=== PATIENT | male | born 1970 | race American Indian/Alaskan Native ===

== ENCOUNTER → 2016-11-21 | Emergency (ER) | payer OTHER ==
[~2016-11-21] MED LIST: KETOROLAC TROMETHAMINE 60 MG/2 ML VIAL IM ONE; KETOROLAC TROMETHAMINE 60 MG/2 ML VIAL ONE
[2016-11-21 11:41] VITALS: BMI 27.3
--- NOTE | 2016-11-21 14:49 | PDOC ---
History of Present Illness - General History Source: Patient Exam Limitations: No Limitations - History of Present Illness Initial Comments: 11/21/16 14:49 The patient is a 45-year-old man with a significant past surgical history of hernia repair who presents to the emergency department for constant non- radiating left back pain. The patient reports lifting an approximately 10 lb box that might've injured the left side of his back. Patient is unable to describe the nature of his pain but notes his pain is exacerbating to a 9/10 in severity with musculoskelatal manuvers. He took Aleve at home at approximately 09:00 AM that did not provide any relief. Patient denies any numbness, tingling or weakness to his extremities. No neck pain. No unsteady gait. No bowel/ bladder incontinence. No chest pain, cough, shortness of breath, lightheadedness , dizziness, nausea, vomiting, diarrhea. No urinary complaints. He denies chest pain, cough, shortness of breath, headache He denies nausea, vomiting, diarrhea He denies changes in bowel habits, dysuria, hematuria, urinary frequency/urgency , testicular pain or penile discharge. Allergies: No Known Drug Allergies Past Surgical History: Hernia Repair. Social History: Current everyday cigarette smoker. No EtOH and recreational drug use. Primary Care Physician: Dr. Bobby Wyman <Carmen Prado - Last Filed: 11/21/16 16:16> <Светлана Salinas - Last Filed: 11/21/16 16:38> <Julita Ortiz - Last Filed: 11/21/16 17:14> - General Chief Complaint: Pain, Acute Stated Complaint: LT SIDE/BACK PAIN (KIDNEY) Time Seen by Provider: 11/21/16 14:49 Past History <Carmen Prado - Last Filed: 11/21/16 16:16> - Surgical History Abdominal Surgery: (HERNIA REPAIR) - Immunization History Td Vaccination: Yes Immunization Up to Date: Yes - Psycho/Social/Smoking Cessation Hx Anxiety: No Suicidal Ideation: No Smoking Status: Yes Smoking History: Current every day smoker Years of Tobacco Use: 14 Have you smoked in the past 12 months: Yes Number of Cigarettes Smoked Daily: 10 If you are a former smoker, when did you quit?: 3 DAYS AGO Cigars Per Day: 0 Information on smoking cessation initiated: No 'Breaking Loose' booklet given: 12/08/13 Hx Alcohol Use: No Drug/Substance Use Hx: No Substance Use Type: None <Светлана Salinas - Last Filed: 11/21/16 16:38> <AngelJulitageorge Patel - Last Filed: 11/21/16 17:14> - Past Medical History Allergies/Adverse Reactions: Allergies Allergy/AdvReac Type Severity Reaction Status Date / Time No Known Allergies Allergy Verified 11/21/16 11:41 Home Medications: Ambulatory Orders NK [No Known Home Medication] 11/21/16 Review of Systems - Review of Systems Able to Perform ROS?: Yes Comments:: 11/21/16 14:49 GENERAL/CONSTITUTIONAL: No fever or chills. No weakness. HEAD, EYES, EARS, NOSE AND THROAT: No change in vision. No ear pain or discharge. No sore throat. CARDIOVASCULAR: No chest pain or shortness of breath. RESPIRATORY: No cough, wheezing, or hemoptysis. GASTROINTESTINAL: No nausea, vomiting, diarrhea or constipation. GENITOURINARY: No dysuria, frequency, or change in urination. MUSCULOSKELETAL: No joint or muscle swelling or pain. No neck or back pain. SKIN: No rash NEUROLOGIC: No headache, vertigo, loss of consciousness, or change in strength/ sensation. ENDOCRINE: No increased thirst. No abnormal weight change. HEMATOLOGIC/LYMPHATIC: No anemia, easy bleeding, or history of blood clots. ALLERGIC/IMMUNOLOGIC: No hives or skin allergy. <Carmen Prado - Last Filed: 11/21/16 16:16> *Physical Exam - Vital Signs Last Vital Signs Temp Pulse Resp BP Pulse Ox 98 F 77 18 116/75 99 11/21/16 11:38 11/21/16 11:38 11/21/16 11:38 11/21/16 11:38 11/21/16 11:38 - Physical Exam Comments: 11/21/16 14:49 GENERAL: Awake, alert, and fully oriented, in no acute distress HEAD: No signs of trauma EYES: PERRLA, EOMI, sclera anicteric, conjunctiva clear ENT: Auricles normal inspection, hearing grossly normal, nares patent, oropharynx clear without exudates. Moist mucosa NECK: Normal ROM, supple, no lymphadenopathy, JVD, or masses LUNGS: Breath sounds equal, clear to auscultation bilaterally. No wheezes, and no crackles HEART: Regular rate and rhythm, normal S1 and S2, no murmurs, rubs or gallops ABDOMEN: Soft, nontender, normoactive bowel sounds. No guarding, no rebound. No masses EXTREMITIES: Normal range of motion, no edema. No clubbing or cyanosis. No cords, erythema, or tenderness BACK: +Right paraspinal tenderness. NEUROLOGICAL: Cranial nerves II through XII grossly intact. Normal speech. <Carmen Prado - Last Filed: 11/21/16 16:16> - Vital Signs Last Vital Signs Temp Pulse Resp BP Pulse Ox 98 F 77 18 116/75 99 11/21/16 11:38 11/21/16 11:38 11/21/16 11:38 11/21/16 11:38 11/21/16 11:38 <Светлана Salinas - Last Filed: 11/21/16 16:38> - Vital Signs Last Vital Signs Temp Pulse Resp BP Pulse Ox 98.2 F 76 17 127/73 100 11/21/16 16:20 11/21/16 16:20 11/21/16 16:20 11/21/16 16:20 11/21/16 16:20 <Julita Ortiz - Last Filed: 11/21/16 17:14> ED Treatment Course - ADDITIONAL ORDERS Additional order review: Laboratory Results 11/21/16 15:00 Urine Color Yellow Urine Appearance Clear Urine pH 5.0 Urine Protein Negative Urine Glucose (UA) Negative Urine Ketones Trace H Urine Blood Negative Urine Nitrite Negative Urine Bilirubin Negative Urine Urobilinogen Negative Ur Leukocyte Esterase Trace H Urine RBC 6 Urine WBC 3 Ur Epithelial Cells Rare Urine Mucus Many - Medications Given in the ED: ED Medications Discontinued Medications Generic Name Dose Route Start Last Admin Trade Name Freq PRN Reason Stop Dose Admin Ketorolac Tromethamine 60 mg 11/21/16 15:29 11/21/16 15:45 Toradol Injection - IM 11/21/16 15:30 60 mg ONCE ONE Administration <Carmen Prado - Last Filed: 11/21/16 16:16> - ADDITIONAL ORDERS Additional order review: Laboratory Results 11/21/16 15:00 Urine Color Yellow Urine Appearance Clear Urine pH 5.0 Urine Protein Negative Urine Glucose (UA) Negative Urine Ketones Trace H Urine Blood Negative Urine Nitrite Negative Urine Bilirubin Negative Urine Urobilinogen Negative Ur Leukocyte Esterase Trace H Urine RBC 6 Urine WBC 3 Ur Epithelial Cells Rare Urine Mucus Many - Medications Given in the ED: ED Medications Discontinued Medications Generic Name Dose Route Start Last Admin Trade Name [place] PRN Reason Stop Dose Admin Ketorolac Tromethamine 60 mg 11/21/16 15:29 11/21/16 15:45 Toradol Injection - IM 11/21/16 15:30 60 mg ONCE ONE Administration <Julita Ortiz - Last Filed: 11/21/16 17:14> Medical Decision Making - Medical Decision Making 11/21/16 16:38 Pt presents to the ED complaining of the acute onset of left sided back pain that began while lifting a heavy box. No urinary or neurologic complaints. No trauma or fever. Pain is made worse with twisting movements of the torso. Pain seems most consistent with muscular pain, but UA shows microscopic hematuria. Will check CT abdomen pelvis to rule out renal stone. <Светлана Salinas - Last Filed: 11/21/16 16:38> *DC/Admit/Observation/Transfer - Attestations Scribe Attestion: 11/21/16 15:57 Documentation prepared by Carmen Prado, acting as medical office supervisor for Светлана Salinas MD, /DO. <Carmen Prado - Last Filed: 11/21/16 16:16> <Светлана Salinas - Last Filed: 11/21/16 16:38> <Julita Ortiz - Last Filed: 11/21/16 17:14> Diagnosis at time of Disposition: Back pain Qualifiers: Back pain location: low back pain Chronicity: acute Back pain laterality: right Sciatica presence: without sciatica Qualified Code(s): M54.5 - Low back pain - Discharge Dispostion Disposition: HOME Condition at time of disposition: Stable - Referrals Referrals: Bobby Wyman MD [Primary Care Provider] - - Patient Instructions Printed Discharge Instructions: DI for Low Back Pain Additional Instructions: please followup with your physician if your symptoms persist
[2016-11-21 15:18] LABS: URINE APPEARANCE CLEAR; URINE BILIRUBIN NEGATIVE (NEGATIVE); URINE BLOOD NEGATIVE (NEGATIVE); URINE COLOR YELLOW; URINE GLUCOSE (UA) NEGATIVE (NEGATIVE); URINE KETONE TRACE (NEGATIVE); URINE NITRITE NEGATIVE (NEGATIVE); URINE PROTEIN NEGATIVE (NEGATIVE); URINE UROBILINOGEN NEGATIVE E.U./dl (0.2-1.0)
[2016-11-21 15:19] LABS: URINE LEUK ESTERASE TRACE (NEGATIVE)
[2016-11-21 15:46] LABS: URINE MUCUS MANY; URINE RBC 6 /hpf (0-3); URINE WBC 3 /hpf (3-5)
[2016-11-21 16:21] VITALS: BP 127/73; PULSE 76; TEMP 98.2
== END | disposition home or self-care (01) ==
LOC: JER 11:35
PROC: 3E0233Z Introduction of Anti-inflammatory into Muscle, Percutaneous Approach (ICD-10-PCS; principal; 2016-11-21)
DX: M54.5 Low back pain (principal); X50.0XXA Overexertion from strenuous movement or load, initial encounter; Y93.89 Activity, other specified; Y92.89 Other specified places as the place of occurrence of the external cause
CPT/HCPCS: 74176-TC; 81003; 81015; 96372; 99282-25

== ENCOUNTER 2017-01-06 12:07 | Emergency (ER) | payer OTHER ==
[2017-01-06 12:24] VITALS: BP 125/79; PULSE 70; TEMP 98; BMI 26.6
--- NOTE | 2017-01-06 12:33 | PDOC ---
History of Present Illness - General Chief Complaint: Chest Pain Stated Complaint: CHEST,ABD PAIN Time Seen by Provider: 01/06/17 12:33 - History of Present Illness Initial Comments: 01/06/17 14:01 Chief complaint: Chest and abdominal pain History of present illness: Patient states that he quit smoking one week ago after smoking cigarettes 1-2 packs per day for 20 years. A few days thereafter he began to feel "heartburn" in his epigastrium radiating to his anterior chest. This is accompanied by intermittent nausea, anorexia, anxiety, sleeplessness, and tingling in his hands and feet. Review of systems: Denies diaphoresis, lightheadedness, shortness of breath, visual or focal neurologic symptoms, unsteadiness of gait. Remainder systems reviewed and found to be negative Past medical history: Patient is a healthy male, no significant past medical or surgical problems, no home medications. Social history: Quit smoking at the urging of his small daughter. Denies alcohol or other drugs. Fully active and without disability Family history: Reviewed and noncontributory including early coronary artery disease, metabolic disease including diabetes, and cancer Physical exam: Alert and oriented 3, well-developed well-nourished, no acute distress, cheerful and cooperative Afebrile, vital signs normal PERRLA, fundi benign, ENT clear Neck supple without bruit mass or nodes Chest clear with full breath sounds throughout CV S1 and S2 normal without murmur rub or gallop pulses full and symmetric no JVD or edema. No rib cage or chest wall deformity or point tenderness Abdomen soft nontender without mass or organomegaly. Bowel sounds normal. Neurological C2 to 12 intact. No focal sensory or motor deficits. Gait stable and unimpaired Extremities no CCE Skin clear, no rash, adequate turgor and wet mucous membranes Impression: Most likely withdrawal from nicotine with multiple somatic symptoms. No suggestion of neurologic or cardiac disease on exam or from the history Plan: EKG and enzymes, CBC and chemistries, Protonix and Zofran, further medical evaluation depending on results Past History - Past Medical History Allergies/Adverse Reactions: Allergies Allergy/AdvReac Type Severity Reaction Status Date / Time No Known Allergies Allergy Verified 01/06/17 12:09 Home Medications: Ambulatory Orders Hydroxyzine Pamoate [Vistaril -] 25 mg PO TID #20 capsule 01/06/17 Pantoprazole Sodium [Protonix -] 40 mg PO DAILY #10 tablet.ec 01/06/17 Other medical history: LOWER BACK AND NECK PAIN - Surgical History Abdominal Surgery: (HERNIA REPAIR) - Immunization History Td Vaccination: Yes Immunization Up to Date: Yes - Psycho/Social/Smoking Cessation Hx Anxiety: No Suicidal Ideation: No Smoking Status: Yes Smoking History: Former smoker Years of Tobacco Use: 14 Have you smoked in the past 12 months: Yes Number of Cigarettes Smoked Daily: 10 If you are a former smoker, when did you quit?: Dec Cigars Per Day: 0 Information on smoking cessation initiated: Yes 'Breaking Loose' booklet given: 01/06/17 Hx Alcohol Use: No Drug/Substance Use Hx: No Substance Use Type: None *Physical Exam - Vital Signs Last Vital Signs Temp Pulse Resp BP Pulse Ox 98 F 70 20 125/79 100 01/06/17 12:08 01/06/17 12:08 01/06/17 12:08 01/06/17 12:08 01/06/17 12:08 ED Treatment Course - LABORATORY CBC & Chemistry Diagram: 01/06/17 13:00 01/06/17 13:00 - ADDITIONAL ORDERS Additional order review: Laboratory Results 01/06/17 13:00 Sodium 136 Potassium 3.5 Chloride 103 Carbon Dioxide 26 Anion Gap 7 L BUN 13 Creatinine 0.8 Creat Clearance w eGFR > 60 Random Glucose 93 Calcium 8.9 Total Bilirubin 0.3 AST 26 ALT 23 Alkaline Phosphatase 41 Creatine Kinase 163 Creatine Kinase Index 1.7 CK-MB (CK-2) 2.9 Troponin I < 0.03 L Total Protein 6.6 Albumin 4.1 01/06/17 13:00 RBC 4.46 MCV 85.7 MCHC 36.2 H RDW 11.7 L MPV 11.4 H Neutrophils % 50.8 Lymphocytes % 39.1 Monocytes % 6.8 Eosinophils % 2.3 Basophils % 1.0 - Medications Given in the ED: ED Medications Discontinued Medications Generic Name Dose Route Start Last Admin Trade Name Freq PRN Reason Stop Dose Admin Pantoprazole Sodium 40 mg/ 100 mls @ 200 mls/hr 01/06/17 12:57 01/06/17 13:03 Sodium Chloride IVPB 01/06/17 13:26 200 mls/hr ONCE ONE Administration Ondansetron HCl 4 mg 01/06/17 13:00 01/06/17 13:03 Zofran Injection IVPB 01/06/17 13:01 4 mg ONCE ONE Administration Medical Decision Making - Medical Decision Making 01/06/17 12:46 EKG shows normal sinus rhythm rate 61/m. Normal axes and intervals. There is an inverted T-wave in lead 3 and the suggestion of flattening of the ST segment in aVF. These are the only abnormalities. Old EKGs were obtained from 2013 and 2015. Similar changes were present, there being no interval change. 01/06/17 12:50 01/06/17 13:47 Laboratories reviewed: No significant abnormalities in the CBC and chemistries. Troponin is negative. Patient symptoms are most likely due to abrupt cessation of smoking after smoking 1-2 packs per day for 20 years. He is already 1 week without cigarettes and is determined to continue his abstinence. Short course of Protonix and anxiolytic until body acclimated to the withdrawal of nicotine. Instructed to follow-up with his primary physician or return to the ER if his symptoms are worse. Fully ambulatory and in no significant pain or other distress upon discharge with friend to follow-up as directed 01/06/17 14:06 *DC/Admit/Observation/Transfer Diagnosis at time of Disposition: Nicotine withdrawal - Discharge Dispostion Disposition: HOME Condition at time of disposition: Improved Admit: No - Prescriptions Prescriptions: Pantoprazole Sodium [Protonix -] 40 mg PO DAILY #10 tablet.ec Hydroxyzine Pamoate [Vistaril -] 25 mg PO TID #20 capsule - Patient Instructions Printed Discharge Instructions: Smoking Cessation, Smoking Cessation Associated with Decreases Risk of Complications After Juni - Post Discharge Activity Work/School Note: Back to Work
[2017-01-06] MEDS ORDERED: PANTOPRAZOLE SODIUM 40 MG in SODIUM CHLORIDE 100 ML IVPB ONE (12:57)
[2017-01-06] MEDS ORDERED: ONDANSETRON 4 MG/2 ML VIAL IVPB ONE (13:00)
[2017-01-06] MEDS ORDERED: PANTOPRAZOLE SODIUM 40 MG VIAL ONE (13:01)
[2017-01-06] MEDS ORDERED: ONDANSETRON 4 MG/2 ML VIAL ONE (13:04)
[2017-01-06 13:16] LABS: EOSINOPHIL 2.3 % (0-4.5); MCH 31.1 pg (25.7-33.7); MCHC 36.2 g/dl (32.0-35.9); MEAN CELL VOLUME 85.7 fl (80-96); MEAN PLT VOLUME 11.4 fl (7.5-11.1); NEUTROPHILS 50.8 % (42.8-82.8); PLATELET COUNT 122 K/MM3 (134-434); RDW 11.7 % (11.9-15.9); WHITE BLOOD COUNT 8.1 K/mm3 (4.0-10.8)
--- NOTE | 2017-01-06 13:20 | EKG ---
Test Reason : Blood Pressure : / mmHG Vent. Rate : 061 BPM Atrial Rate : 061 BPM P-R Int : 170 ms QRS Dur : 102 ms QT Int : 410 ms P-R-T Axes : 046 077 011 degrees QTc Int : 412 ms SINUS RHYTHM WHEN COMPARED WITH ECG OF 23-DEC-2015 09:05, NO SIGNIFICANT CHANGE WAS FOUND Confirmed by GABE VASQUEZ MD ([id number]) on 01/06/2017 1:20:05 PM Referred By: EVON Confirmed By:GABE VASQUEZ MD
[2017-01-06 13:25] LABS: ALBUMIN 4.1 g/dl (3.5-5.0); ALK PHOS 41 U/L (32-92); ANION GAP 7 (8-16); BILIRUBIN,TOTAL 0.3 mg/dl (0.2-1.0); CALCIUM 8.9 mg/dl (8.4-10.2); CO2 26 mmol/L (22-28); CPK 163 IU/L (39-308); CREATININE 0.8 mg/dl (0.6-1.3); GLUCOSE,RANDOM 93 mg/dl (74-106); SGOT/AST 26 U/L (10-42); SGPT/ALT 23 U/L (10-40); TOT PROT 6.6 g/dl (6.4-8.3)
[2017-01-06 13:37] LABS: TROPONIN I (DFP) < 0.03 ng/ml (0.03-0.50)
== END 2017-01-06 14:07 | disposition home or self-care (01) ==
LOC: FER 12:07
PROC: 3E023GC Introduction of Other Therapeutic Substance into Muscle, Percutaneous Approach (ICD-10-PCS; principal; 2017-01-06)
DX: F17.203 Nicotine dependence unspecified, with withdrawal (principal)
CPT/HCPCS: 36415; 80053; 82553; 84484; 85025; 93005; 96365; 96375; 99284-25

== ENCOUNTER 2017-07-26 23:00 | Emergency (ER) | payer OTHER ==
[2017-07-26 23:12] VITALS: BP 117/82; PULSE 71; TEMP 97.9; BMI 26.9
[2017-07-27 01:11] LABS: BASO % 0.5 % (0-2.0); EOS % 2.8 % (0-4.5); HEMATOCRIT 40.1 % (35.4-49); HEMOGLOBIN 13.7 GM/dL (11.7-16.9); LYMPH % 48.9 % (8-40); MCH 30.9 pg (25.7-33.7); MEAN CELL VOLUME 90.8 fl (80-96); MONO % 7.9 % (3.8-10.2); NEUT % 39.9 % (42.8-82.8); PLATELET COUNT 128 K/MM3 (134-434); RBC 4.42 M/mm3 (4.00-5.60); RDW 12.9 % (11.9-15.9)
--- NOTE | 2017-07-27 01:22 | PDOC ---
History of Present Illness - General History Source: Patient, Family Exam Limitations: No Limitations - History of Present Illness Initial Comments: 07/27/17 01:26 The patient is a 46 year old male presenting with his family, with no significant past medical history, who presents to the emergency department with chest pain onset today and left arm numbness/tingling for the past 3 days. He describes his chest pain as sharp in nature and ranging from mild to moderate, with radiation to the left upper back and his left upper extremity. He reports taking Ibuprofen 800 mg and percocet, which has helped alleviate the pain. He notes that he has been worked up for chest pain in the past and had a stress test last year that was normal. He reports that he did receive the flu shot last week on his left arm. The patient denies shortness of breath, headache and dizziness. Denies fever, chills, nausea, vomit, diarrhea and constipation. Denies dysuria, frequency, urgency and hematuria. Allergies: None Past surgical history: Hernia Repair Social history: Half a pack daily. No alcohol or drug use reported <Calvin Hernandez - Last Filed: 07/27/17 01:26> - General History Source: Patient Exam Limitations: No Limitations <Lily Peralta - Last Filed: 07/27/17 02:08> - General Chief Complaint: Chest Pain Stated Complaint: CHEST PAIN Time Seen by Provider: 07/27/17 00:08 Past History <Calvin Hernandez - Last Filed: 07/27/17 01:26> - Past Medical History COPD: No Other medical history: denies - Surgical History Abdominal Surgery: (HERNIA REPAIR) - Immunization History Td Vaccination: Yes Immunization Up to Date: Yes - Suicide/Smoking/Psychosocial Hx Smoking Status: Yes Smoking History: Current every day smoker Years of Tobacco Use: 14 Have you smoked in the past 12 months: Yes Number of Cigarettes Smoked Daily: 10 If you are a former smoker, when did you quit?: Dec Cigars Per Day: 0 Information on smoking cessation initiated: No 'Breaking Loose' booklet given: 01/06/17 Hx Alcohol Use: No Drug/Substance Use Hx: No Substance Use Type: None <Lily Peralta - Last Filed: 07/27/17 02:08> - Past Medical History Allergies/Adverse Reactions: Allergies Allergy/AdvReac Type Severity Reaction Status Date / Time No Known Allergies Allergy Verified 01/06/17 12:09 Home Medications: Ambulatory Orders Pantoprazole Sodium [Protonix -] 40 mg PO DAILY #10 tablet.ec 01/06/17 hydrOXYzine PAMOATE [Vistaril -] 25 mg PO TID #20 capsule 01/06/17 Review of Systems - Review of Systems Able to Perform ROS?: Yes Comments:: 07/27/17 01:27 GENERAL/CONSTITUTIONAL: No fever or chills. No weakness. HEAD, EYES, EARS, NOSE AND THROAT: No change in vision. No ear pain or discharge. No sore throat. CARDIOVASCULAR: (+) Chest pain. No shortness of breath RESPIRATORY: No cough, wheezing, or hemoptysis. GASTROINTESTINAL: No nausea, vomiting, diarrhea or constipation. GENITOURINARY: No dysuria, frequency, or change in urination. MUSCULOSKELETAL: No joint or muscle swelling or pain. No neck or back pain. SKIN: No rash NEUROLOGIC: (+) Left upper extremity numbness/tingling. No headache, vertigo, loss of consciousness. ENDOCRINE: No increased thirst. No abnormal weight change HEMATOLOGIC/LYMPHATIC: No anemia, easy bleeding, or history of blood clots. ALLERGIC/IMMUNOLOGIC: No hives or skin allergy. <Calvin Hernandez - Last Filed: 07/27/17 01:26> *Physical Exam - Vital Signs Last Vital Signs Temp Pulse Resp BP Pulse Ox 97.9 F 71 19 117/82 98 07/26/17 23:07 07/26/17 23:07 07/26/17 23:07 07/26/17 23:07 07/26/17 23:07 - Physical Exam Comments: 07/27/17 01:27 GENERAL: Awake, alert, and fully oriented, in no acute distress HEAD: No signs of trauma, normocephalic, atraumatic EYES: PERRLA, EOMI, sclera anicteric, conjunctiva clear ENT: Auricles normal inspection, hearing grossly normal, nares patent, oropharynx clear without exudates. Moist mucosa NECK: Normal ROM, supple, no lymphadenopathy, JVD, or masses LUNGS: No distress, speaks full sentences, clear to auscultation bilaterally HEART: Regular rate and rhythm, normal S1 and S2, no murmurs, rubs or gallops, peripheral pulses normal and equal bilaterally. ABDOMEN: Soft, nontender, normoactive bowel sounds. No guarding, no rebound. No masses EXTREMITIES : Normal inspection, Normal range of motion, no edema. No clubbing or cyanosis. NEUROLOGICAL: Cranial nerves II through XII grossly intact. Normal speech, normal gait, no focal sensorimotor deficits SKIN: Warm, Dry, normal turgor, no rashes or lesions noted <Calvin Hernandez - Last Filed: 07/27/17 01:26> - Vital Signs Last Vital Signs Temp Pulse Resp BP Pulse Ox 97.9 F 71 19 117/82 98 07/26/17 23:07 07/26/17 23:07 07/26/17 23:07 07/26/17 23:07 07/26/17 23:07 <Lily Peralta - Last Filed: 07/27/17 02:08> Heart Score/ECG Review - History History: Slightly suspicious - Electrocardiogram EKG: Normal - Age Age: 45-65 - Risk Factors Risk Factors Heart Score: Yes Smoking History, Yes Positive family hx of cardiac disease Based on the list above the patient has:: 1-2 risk factors - Troponin Troponin: </= normal limit - Score Heart Score - Total: 2 <Lily Peralta - Last Filed: 07/27/17 02:08> ED Treatment Course - LABORATORY CBC & Chemistry Diagram: 07/27/17 00:49 07/27/17 00:49 - ADDITIONAL ORDERS Additional order review: 07/27/17 00:49 RBC 4.42 MCV 90.8 MCHC 34.0 RDW 12.9 MPV 12.0 H D Neutrophils % 39.9 L D Lymphocytes % 48.9 H D Monocytes % 7.9 Eosinophils % 2.8 Basophils % 0.5 <Calvin Hernandez - Last Filed: 07/27/17 01:26> - LABORATORY CBC & Chemistry Diagram: 07/27/17 00:49 07/27/17 00:49 - RADIOLOGY Radiology Studies Ordered: Category Date Time Status CHEST PA & LAT [RAD] Stat Radiology 07/27/17 00:10 Taken <Lily Peralta - Last Filed: 07/27/17 02:08> Medical Decision Making - Medical Decision Making 07/27/17 01:11 Mr Hendricks presents to the ER today due to a complaint of left arm pain and chest pain The patient states that he has no history of HTN, DM, HLD, CAD He is s/p stress test 1 year ago as an outpatient Pt is s/p influenza vaccination 5 days ago He noted three days ago that he has had left arm cramping/pain Pt states the pain was constant and progressed down the left arm No direct trauma Pt was playing cards this evening his arm pain became severe It was so severe, he could not move his arm higher than his shoulder His pain radiated to his anterior chest No nausea, no diaphoresis No radiation to the back Prior to arrival in the ER, the patient took Motrin 800mg followed by a percocet This has completely resolved his pain On examination: Pt has muscular pain on palpation of the left biceps muscle No neck pain No shoulder pain No chest wall pain RRR CTA b/l Pt and family are concerned about ACS Will do labs, ekg It appears that he is low risk - Heart score = 2 (tobacco use + family history) Based on this, will do troponin Now If undetectable, will repeat troponin in 2 hours 07/27/17 01:23 EKG: SR, rate of 71 bpm, [place] nml, intervals nml, no st elevations or depressions, t wave inversion III 07/27/17 01:33 Laboratory Tests 07/27/17 00:49 WBC 8.0 Hgb 13.7 Hct 40.1 Plt Count 128 L 07/27/17 01:47 Laboratory Tests 07/27/17 00:49 Sodium 139 Potassium 3.6 Chloride 103 Carbon Dioxide 24 BUN 20 H D Creatinine 0.9 Random Glucose 88 Creatine Kinase 140 Troponin I < 0.02 07/27/17 02:03 Pt remains chest pain free CXR: read preliminarily by me is negative Pt does not wish to stay in the hospital He states he has to go to work at 6 am I have explained that it would be best to stay for a repeat troponin at 3 am Pt is unable to do this PERC negative Will discharge to home Pt will need to follow up with his primary care physician Return to the ER for any other concerns or complaints clinical impression: musculoskeletal pain, initial presentation <Lily Peralta - Last Filed: 07/27/17 02:08> *DC/Admit/Observation/Transfer - Attestations Scribe Attestion: 07/27/17 01:28 Documentation prepared by Calvin Hernandez, acting as medical radiation tech for Lily Peralta MD <Calvin Hernandez - Last Filed: 07/27/17 01:26> - Discharge Dispostion Admit: No <Lily Peralta - Last Filed: 07/27/17 02:08> Diagnosis at time of Disposition: Musculoskeletal arm pain Qualifiers: Laterality: left Qualified Code(s): M79.602 - Pain in left arm - Discharge Dispostion Disposition: HOME Condition at time of disposition: Stable - Referrals Referrals: Bert Wyman [Primary Care Provider] - Dallas Zhong MD [Staff Physician] - - Patient Instructions Printed Discharge Instructions: DI for Atypical Chest Pain, DI for Musculoskeletal Pain Additional Instructions: Mr. Hendricks Thank you for coming in to the ER today Please be sure to follow up with your primary care physician within 2-3 days Return to the ER for any new symptoms you can continue taking motrin as needed for pain - Post Discharge Activity
[2017-07-27 01:36] LABS: ALBUMIN 3.6 g/dl (3.4-5.0); ANION GAP 12 (8-16); BLOOD UREA NITROGEN 20 mg/dL (7-18); CALCIUM 8.9 mg/dL (8.5-10.1); CHLORIDE 103 mmol/L (98-107); CO2 24 mmol/L (21-32); CREATININE 0.9 mg/dL (0.7-1.3); GLUCOSE,RANDOM 88 mg/dL (74-106); POTASSIUM 3.6 mmol/L (3.5-5.1); SGOT/AST 17 U/L (15-37); SGPT/ALT 18 U/L (12-78); SODIUM 139 mmol/L (136-145)
[2017-07-27 01:39] LABS: ALK PHOS 49 U/L (45-117); BILIRUBIN,TOTAL 0.3 mg/dL (0.2-1.0); TOT PROT 6.8 g/dl (6.4-8.2)
--- NOTE | 2017-07-27 14:37 | EKG ---
Test Reason : Blood Pressure : / mmHG Vent. Rate : 071 BPM Atrial Rate : 071 BPM P-R Int : 172 ms QRS Dur : 092 ms QT Int : 390 ms P-R-T Axes : 058 084 032 degrees QTc Int : 423 ms NORMAL SINUS RHYTHM POSSIBLE LEFT ATRIAL ENLARGEMENT BORDERLINE ECG WHEN COMPARED WITH ECG OF 06-JAN-2017 12:27, NO SIGNIFICANT CHANGE WAS FOUND Confirmed by WESTON CHERY MD ([id number]) on 07/27/2017 2:37:34 PM Referred By: Confirmed By:WESTON CHERY MD
== END 2017-07-27 02:26 | disposition home or self-care (01) ==
LOC: JER 23:00
DX: M79.1 Myalgia (principal); M79.602 Pain in left arm
CPT/HCPCS: 36415; 71046-TC-FY; 80053; 82550; 84484; 85025; 93005; 93010; 99282-25

== ENCOUNTER 2022-08-23 11:11 | Emergency (ER) | payer BC, OTHER ==
[2022-08-23 11:16] VITALS: BP 160/77; PULSE 72; RESP 18; TEMP 98.6; BMI 26.2
[2022-08-23] MEDS ORDERED: TETRACAINE 0.5% HCL 0.6ML DROPPER.BOTTLE OD ONE (12:15)
[2022-08-23] MEDS ORDERED: FLUORESCEIN NA 1 EA STRIP OD ONE (12:15)
[2022-08-23] MEDS ORDERED: TETRACAINE 0.5% OPHTH SOLN 2 ML BOTTLE ONE (12:15)
[2022-08-23] MEDS ORDERED: FLUORESCEIN NA 1 EA STRIP ONE (12:16)
== END 2022-08-23 12:58 | disposition home or self-care (01) ==
LOC: JERFT 11:11
DX: H57.89 Other specified disorders of eye and adnexa (principal)
CPT/HCPCS: 99283-25